=== PATIENT | female | born 1960 | race Caucasian/White ===

== ENCOUNTER 2019-04-18 17:17 | Emergency (ER) | payer OTHER ==
[2019-04-18] MEDS ORDERED: Lidocaine 2% PF 5 ML VIAL ONE (17:25)
[2019-04-18] MEDS ORDERED: Lidocaine 1% PF 5 ML VIAL ONE (17:26)
[2019-04-18] MEDS ORDERED: Adacel (T-DAP) 0.5 ML SYRINGE ONE (17:55)
== END 2019-04-18 18:30 | disposition home or self-care (01) ==
LOC: BURERS 17:17
DX: S81.012A Laceration without foreign body, left knee, initial encounter (principal); E78.5 Hyperlipidemia, unspecified; I10 Essential (primary) hypertension; Z79.899 Other long term (current) drug therapy; W07.XXXA Fall from chair, initial encounter
CPT/HCPCS: 12002; 90715; J2001